=== PATIENT | male | born 1960 | race Caucasian/White ===

== ENCOUNTER 2020-05-27 06:38 | Emergency (ER) | payer OTHER, SELFPAY ==
[~2020-05-27] VITALS: Ht 177.8 cm; Wt 68.9 kg
--- NOTE | 2020-05-27 08:19 | NUR ---
PT AMBULATORY WITH STEADY GAIT TO ROOM AT THIS TIME.
--- NOTE | 2020-05-27 08:24 | NUR ---
PT BROUGHT BACK FROM [place] WITH CHIEF COMPLAINT OF "HEAT STOKE", SORE THROAT ANSD SOB YESTERDAY 11-3. SYMPTOMS HAVE RESOLVED.
[2020-05-27] MEDS ORDERED: SODIUM CHLORIDE 0.9% 1,000ML IVBOLUS ONE (08:30)
[2020-05-27 09:15] LABS: BASOPHILS # (AUTO) 0.02 x10^3/uL (0-0.1); BASOPHILS % (AUTO) 0 % (0-1); EOSINOPHILS # (AUTO) 0.01 x10^3/uL (0-0.4); EOSINOPHILS % (AUTO) 0 % (1-7); LYMPHOCYTES # (AUTO) 0.84 x10^3/uL (1-3.4); LYMPHOCYTES % (AUTO) 13 % (22-44); MD NO; MEAN CORPUSCULAR HEMOGLOBIN 34.3 pg (27.5-34.5); MEAN CORPUSCULAR VOLUME 103.7 fL (81-97); MONOCYTES # (AUTO) 0.92 x10^3/uL (0.2-0.8); MONOCYTES % (AUTO) 14 % (2-9); NEUTROPHILS # (AUTO) 4.83 x10^3/uL (1.8-6.8); NEUTROPHILS % (AUTO) 73 % (42-75); PLATELET COUNT 267 x10^3/uL (130-400); RED BLOOD COUNT 4.12 x10^6/uL (4.38-5.82); RED CELL DISTRIBUTION WIDTH 13.4 % (9.4-14.8)
--- NOTE | 2020-05-27 09:22 | NUR ---
PT RESTING IN BED.
[2020-05-27 09:52] LABS: ALANINE AMINOTRANSFERASE 26 U/L (12-78); ALBUMIN 3.6 g/dL (3.4-5.0); CALCIUM 8.7 mg/dL (8.5-10.1); CREATININE 1.77 mg/dL (0.7-1.3)
[2020-05-27 09:56] LABS: ALKALINE PHOSPHATASE 61 U/L (45-117); TOTAL PROTEIN 7.5 g/dL (6.4-8.2); TROPONIN I < 0.015 ng/mL (0.000-0.045)
[2020-05-27 10:05] LABS: ANION GAP 9 mmol/L (5-15); BILIRUBIN,TOTAL 3.2 mg/dL (0.2-1.0); CHLORIDE 98 mmol/L (98-107)
[2020-05-27 10:25] VITALS: BP 122/81
--- NOTE | 2020-05-27 10:56 | NUR ---
Discharge instructions reviewed.
== END 2020-05-27 11:02 | disposition home or self-care (01) ==
LOC: ED 10:50
DX: N28.9 Disorder of kidney and ureter, unspecified (principal); Z20.828 Contact with and (suspected) exposure to other viral communicable diseases; R06.02 Shortness of breath; E87.1 Hypo-osmolality and hyponatremia; R53.1 Weakness; R11.2 Nausea with vomiting, unspecified; E86.0 Dehydration; R94.31 Abnormal electrocardiogram [ECG] [EKG]; I10 Essential (primary) hypertension
CPT/HCPCS: 36415; 71045; 80053; 84484; 85025; 87635; 93005; 96360; 99285; J7030

== ENCOUNTER 2020-11-08 11:16 | Emergency (ER) | payer OTHER ==
[~2020-11-08] VITALS: Ht 177.8 cm; Wt 67.4 kg
[2020-11-08 11:27] VITALS: BP 130/86
[2020-11-08] MEDS ORDERED: ONDANSETRON ODT 4 MG PO ONE (11:30)
[2020-11-08 12:05] LABS: BASOPHILS % (AUTO) 0 % (0-1); EOSINOPHILS % (AUTO) 1 % (1-7); LYMPHOCYTES % (AUTO) 16 % (22-44); MEAN CORPUSCULAR HEMOGLOBIN 34.6 pg (27.5-34.5); MEAN CORPUSCULAR HGB CONC 34.1 g/dL (33.2-36.2); MEAN PLATELET VOLUME 7.2 fL (7.4-10.4); MONOCYTES % (AUTO) 17 % (2-9); NEUTROPHILS % (AUTO) 67 % (42-75); PLATELET COUNT 275 x10^3/uL (130-400); RED BLOOD COUNT 3.72 x10^6/uL (4.38-5.82); RED CELL DISTRIBUTION WIDTH 13.4 % (9.4-14.8)
[2020-11-08 12:07] LABS: MD NO
[2020-11-08 12:17] LABS: ALBUMIN 3.7 g/dL (3.4-5.0); ANION GAP 8 mmol/L (5-15); CALCIUM 9.4 mg/dL (8.5-10.1); CHLORIDE 97 mmol/L (98-107)
[2020-11-08 12:19] LABS: CREATININE 1.45 mg/dL (0.7-1.3)
--- NOTE | 2020-11-08 14:43 | NUR ---
pt to room at this time.
[2020-11-08] MEDS ORDERED: ONDANSETRON ODT 4 MG ONE (15:03)
--- NOTE | 2020-11-08 15:37 | NUR ---
TASK RN: DC EDUCATION PROVIDED, PT DEMONSTRATES UNDERSTANDING. PT AMBULATED STEADILY TO DC W RN
== END 2020-11-08 15:38 | disposition home or self-care (01) ==
LOC: ED 13:44
DX: A05.9 Bacterial foodborne intoxication, unspecified (principal); R11.2 Nausea with vomiting, unspecified; R19.7 Diarrhea, unspecified; E87.1 Hypo-osmolality and hyponatremia; I10 Essential (primary) hypertension
CPT/HCPCS: 36415; 80048; 82040; 85025; 93005; 99284